=== PATIENT | female | born 1990 | race Caucasian/White ===

== ENCOUNTER 2017-09-16 15:24 | Inpatient (IN) ==
[2017-09-16] MEDS ORDERED: DINOPROSTONE VAG GEL 10 MG SYRINGE VAG ONE ×2 (15:55→16:10)
[2017-09-16 16:43] LABS: Basophils % 0.2 % (0.0-0.8); Eosinophils # 0.1 10*3/uL (0.0-0.87); Eosinophils % 0.6 % (0.00-10.9); Hematocrit 30.7 VOL% (35.7-47.0); Hemoglobin 10.5 GM/DL (12.0-16.0); Immature Granulocytes % 0.4 %; Immature Granulocytes Absolute 0.04 #; Lymphocytes # 1.7 10*3/uL (1.4-4.0); Lymphocytes % 18.4 % (21.3-54.2); Mean Corpuscular HGB Conc 34.2 GM/DL (32-36); Mean Corpuscular Hemoglobin 30 PG (27-34); Mean Corpuscular Volume 86.7 FL (87-102); Monocytes # 0.5 10*3/uL (0.11-0.8); Monocytes % 5.8 % (1.7-12.7); Neutrophils # 6.7 10*3/uL (1.4-7.4); Neutrophils % 74.6 % (38.7-73.9); Platelet Count 183 T/CUMM (130-400); Red Blood Count 3.54 MC/CUMM (3.8-5.5); Red Cell Distribution Width 13.4 % (9.3-17.3)
[2017-09-16] MEDS: LACTATED RINGERS 1,000 ML IV SCH (16:59)
[2017-09-17] MEDS: CLINDAMYCIN INJ 900 MG in PREMIX 1 EACH IV SCH ×2 (02:10→10:06)
[2017-09-17] MEDS ORDERED: OXYTOCIN/LR 20 UNIT/1,000 ML BAG IV SCH (03:00)
[2017-09-17] MEDS: MEPERIDINE 50 MG/1 ML VIAL IV PRN ×2 (03:24→08:32)
[2017-09-17] MEDS: ONDANSETRON 4 MG/2 ML VIAL IV PRN ×2 (03:24→08:33)
[2017-09-17] MEDS: LACTATED RINGERS 1,000 ML IV SCH (05:34)
[2017-09-17] MEDS ORDERED: hydrOXYzine HCL 25 MG/1 ML VIAL IM PRN (09:12)
[2017-09-17] MEDS ORDERED: ePHEDrine 50 MG/ML AMP IV PRN (09:12)
[2017-09-17] MEDS ORDERED: CITRIC ACID/SODIUM CITRATE 30 ML UDCUP PO ONE (09:12)
[2017-09-17] MEDS ORDERED: diphenhydrAMINE 50 MG/1 ML VIAL IV PRN ×2 (09:12)
[2017-09-17] MEDS ORDERED: PROMETHAZINE 25 MG/1 ML VIAL IM ONE (09:12)
[2017-09-17] MEDS ORDERED: FAMOTIDINE 20 MG/2 ML VIAL IV ONE (09:12)
[2017-09-17] MEDS ORDERED: fentaNYL 2 MCG/ROPIV 0.2% EPID 150 ML EPIDURAL SCH (09:30)
[2017-09-17 13:04] LABS: Amorphous Crystals,Urine Occasional /HPF (Few); Apearance,Urine Slightly Hazy (Clear); Bacteria,Urine Occasional /HPF (Few); Bilirubin,Urine Negative (Negative); Blood, Urine Negative (Negative); Glucose,Urine (UA) Negative (Negative); Hyaline Casts,Urine 2 /LPF (0-3); Ketones,Urine Negative (Negative); Mucus,Urine Occasional /LPF (Occasional); Nitrite,Urine Negative (Negative); Protein,Urine Negative; RBC,Urine 1 /HPF (0-4); Squamous Epithelial Cell,Urine Occasional /HPF (0-10); Urine Color Yellow (Yellow); Urine Specific Gravity 1.011 (1.001-1.035); Urine Urobilinogen < 2.0 EU/DL (0.2-1.0); WBC,Urine 2 /HPF (0-6)
[2017-09-17 16:31] LABS: Cord Venous Blood HCO3 21.4 MMOL/L; Cord Venous Blood PCO2 38.8 MMHG; Cord Venous Blood PO2 33.3
[2017-09-17] MEDS ORDERED: OXYTOCIN/LR 20 UNIT/1,000 ML BAG IV ONE (17:17)
[2017-09-17] MEDS: DOCUSATE SODIUM 100 MG CAPSULE PO SCH (21:02)
[2017-09-18 06:40] LABS: Basophils % 0.2 % (0.0-0.8); Eosinophils % 0.3 % (0.00-10.9); Hematocrit 26.1 VOL% (35.7-47.0); Immature Granulocytes % 0.4 %; Immature Granulocytes Absolute 0.04 #; Lymphocytes # 1.9 10*3/uL (1.4-4.0); Lymphocytes % 16.7 % (21.3-54.2); Mean Corpuscular HGB Conc 34.5 GM/DL (32-36); Mean Corpuscular Hemoglobin 29 PG (27-34); Mean Platelet Volume 10.3 FL (9.6-12.0); Monocytes # 0.7 10*3/uL (0.11-0.8); Monocytes % 5.8 % (1.7-12.7); Neutrophils # 8.7 10*3/uL (1.4-7.4); Neutrophils % 76.6 % (38.7-73.9); Platelet Count 145 T/CUMM (130-400); Red Blood Count 3.07 MC/CUMM (3.8-5.5); Red Cell Distribution Width 13.5 % (9.3-17.3); White Blood Count 11.3 T/CUMM (4-12)
[2017-09-18] MEDS: FERROUS SULFATE 325 MG TABLET PO SCH ×2 (09:38→19:26)
[2017-09-18] MEDS: MULTIVITAMIN (PRENATAL) TABLET PO SCH (09:38)
[2017-09-18] MEDS: DOCUSATE SODIUM 100 MG CAPSULE PO SCH ×2 (09:38→19:26)
[2017-09-18] MEDS: IBUPROFEN 800 MG TABLET PO PRN ×2 (11:29→19:26)
[2017-09-19] MEDS: DOCUSATE SODIUM 100 MG CAPSULE PO SCH ×2 (01:59→10:10)
[2017-09-19] MEDS: FERROUS SULFATE 325 MG TABLET PO SCH ×2 (02:00→10:10)
[2017-09-19 07:31] VITALS: BP 115/72
[2017-09-19] MEDS: MULTIVITAMIN (PRENATAL) TABLET PO SCH (10:10)
[2017-09-19] MEDS ORDERED: DIPH/TET/ACEL PERT BOOSTER VACCINE 0.5 ML VIAL IM ONE (11:02)
== END 2017-09-19 13:15 | disposition home or self-care (01) | DRG 560 ==
LOC: N.LDOUT 15:24 → N.LD 15:26 → N.OB 09-17 17:57
PROVIDERS: ADMIT Obstetrics & Gynecology; ATTEND Obstetrics & Gynecology

== ENCOUNTER 2020-04-12 06:12 | Inpatient (IN) ==
[2020-04-12] MEDS ORDERED: ONDANSETRON 4 MG/2 ML VIAL IV PRN (06:24)
[2020-04-12] MEDS ORDERED: LACTATED RINGERS 500 ML IV PRN (06:24)
[2020-04-12] MEDS ORDERED: BUTORPHANOL 2 MG/ML VIAL IV PRN (06:35)
[2020-04-12] MEDS ORDERED: MEPERIDINE 50 MG/1 ML VIAL IV PRN (06:35)
[2020-04-12] MEDS ORDERED: OXYTOCIN/LR 20 UNIT/1,000 ML BAG IV SCH (07:00)
[2020-04-12 07:09] LABS: Basophils % 0.1 % (0.0-0.8); Eosinophils % 0.5 % (0.00-10.9); Hematocrit 29.8 VOL% (35.7-47.0); Hemoglobin 9.9 GM/DL (12.0-16.0); Immature Granulocytes % 0.5 %; Immature Granulocytes Absolute 0.04 #; Lymphocytes # 1.5 10*3/uL (1.4-4.0); Lymphocytes % 17.7 % (21.3-54.2); Mean Corpuscular HGB Conc 33.2 GM/DL (32-36); Mean Corpuscular Volume 85.1 FL (87-102); Mean Platelet Volume 10.4 FL (9.6-12.0); Monocytes % 7.9 % (1.7-12.7); Neutrophils % 73.3 % (38.7-73.9); Platelet Count 158 T/CUMM (130-400); Red Cell Distribution Width 16.4 % (9.3-17.3); White Blood Count 8.7 T/CUMM (4-12)
[2020-04-12] MEDS: LACTATED RINGERS 1,000 ML IV SCH ×2 (07:20→10:36)
[2020-04-12] MEDS ORDERED: diphenhydrAMINE 50 MG/1 ML VIAL IV PRN (07:34)
[2020-04-12] MEDS ORDERED: CITRIC ACID/SODIUM CITRATE 30 ML UDCUP PO ONE (07:34)
[2020-04-12] MEDS ORDERED: hydrOXYzine HCL 25 MG/1 ML VIAL IM PRN (07:34)
[2020-04-12] MEDS ORDERED: NALOXONE 0.4 MG/ML VIAL IV PRN (07:34)
[2020-04-12] MEDS ORDERED: FAMOTIDINE 20 MG/2 ML VIAL IV ONE (07:34)
[2020-04-12] MEDS ORDERED: PROMETHAZINE 25 MG/1 ML VIAL IM PRN (07:34)
[2020-04-12] MEDS ORDERED: ePHEDrine 50 MG/ML VIAL IV PRN (07:34)
[2020-04-12 07:36] LABS: Alanine Aminotransferase 16 U/L (13-56); Albumin 2.6 G/DL (3.4-5.0); Alkaline Phosphatase 153 U/L (45-117); Aspartate Amino Transferase 14 U/L (0-37); Bilirubin,Total < 0.39 MG/DL (0.2-1.0); Blood Urea Nitrogen 7 MG/DL (7-18); Calcium 9.2 MG/DL (8.5-10.1); Estimated Glom Filtration Rate 146 ML/MIN; Glucose 89 MG/DL (74-106); Total Protein 7.4 G/DL (6.4-8.3)
[2020-04-12] MEDS ORDERED: fentaNYL 2 MCG/ROPIV 0.2% EPID 100 ML EPIDURAL SCH (08:00)
[2020-04-12 12:20] LABS: Bacteria,Urine Occasional /HPF (Few); Bilirubin,Urine Negative (Negative); Blood, Urine Negative (Negative); Calcium Oxalate Crystals,Urine Occasional /HPF (Few); Glucose,Urine (UA) Negative (Negative); Hyaline Casts,Urine 1 /LPF (0-3); Ketones,Urine 5 mg/dL (Negative); Mucus,Urine Few /LPF (Occasional); Nitrite,Urine Negative (Negative); Protein,Urine 30 MG/DL; RBC,Urine 2 /HPF (0-4); Squamous Epithelial Cell,Urine Occasional /HPF (0-10); Urine Appearance CLEAR (Clear); Urine Color Yellow (Yellow); Urine Urobilinogen < 2.0 EU/DL (0.2-1.0); WBC,Urine 2 /HPF (0-6)
[2020-04-12] MEDS ORDERED: METHYLERGONOVINE 0.2 MG/1 ML AMP ONE (16:08)
[2020-04-12] MEDS ORDERED: CARBOPROST TROMETHAMINE 250 MCG/ML AMP IM ONE (16:08)
[2020-04-12] MEDS ORDERED: miSOPROStoL 200 MCG TABLET ONE (16:08)
[2020-04-12 17:27] LABS: Cord Venous Blood HCO3 22.1 MMOL/L; Cord Venous Blood PCO2 44.7 MMHG; Cord Venous Blood PO2 26.3 MMHG
[2020-04-12] MEDS ORDERED: ACETAMINOPHEN 325 MG TABLET PO PRN (21:11)
[2020-04-12] MEDS ORDERED: MEASLES/MUMPS/RUBELLA VACCINE 0.5 ML VIAL SUBCUT ONE (21:11)
[2020-04-12] MEDS ORDERED: BENZOCAINE 20%/MENTHOL 0.5% SPRAY 56 GM CAN TOP PRN (21:11)
[2020-04-12] MEDS ORDERED: RHO(D) IMMUNE GLOBULIN 300 MCG SYRINGE IM ONE (21:11)
[2020-04-12] MEDS ORDERED: oxyCODONE/ACETAMINOPHEN 5-325 MG TABLET PO PRN ×2 (21:11)
[2020-04-12] MEDS ORDERED: DIPH/TET/ACEL PERT BOOSTER VACCINE 0.5 ML VIAL IM ONE (21:11)
[2020-04-12] MEDS ORDERED: WITCH HAZEL PADS 100/JAR TOP PRN (21:11)
[2020-04-12] MEDS ORDERED: HYDROCORTISONE 2.5% RECTAL CREAM 30 GM TUBE TOP PRN (21:11)
[2020-04-12] MEDS ORDERED: OXYTOCIN/LR 20 UNIT/1,000 ML BAG IV ONE (21:11)
[2020-04-12] MEDS ORDERED: BISACODYL 10 MG SUPP RECTAL PRN (21:11)
[2020-04-12] MEDS ORDERED: LANOLIN 50% CREAM 0.3 OZ TUBE TOP PRN (21:11)
[2020-04-12] MEDS: IBUPROFEN 800 MG TABLET PO PRN (21:34)
[2020-04-13] MEDS ORDERED: CALCIUM CARBONATE CHEW 500 MG TABLET PO PRN (04:09)
[2020-04-13] MEDS: IBUPROFEN 800 MG TABLET PO PRN ×3 (04:12→20:40)
[2020-04-13 06:38] LABS: Basophils % 0.3 % (0.0-0.8); Eosinophils # 0.1 10*3/uL (0.0-0.87); Eosinophils % 0.6 % (0.00-10.9); Hematocrit 31.1 VOL% (35.7-47.0); Hemoglobin 10.3 GM/DL (12.0-16.0); Immature Granulocytes % 0.6 %; Immature Granulocytes Absolute 0.06 #; Lymphocytes # 1.9 10*3/uL (1.4-4.0); Lymphocytes % 17.6 % (21.3-54.2); Mean Corpuscular HGB Conc 33.1 GM/DL (32-36); Mean Corpuscular Volume 84.7 FL (87-102); Mean Platelet Volume 11.1 FL (9.6-12.0); Monocytes % 5.9 % (1.7-12.7); Platelet Count 142 T/CUMM (130-400); Red Blood Count 3.67 MC/CUMM (3.8-5.5); Red Cell Distribution Width 16.3 % (9.3-17.3); White Blood Count 10.7 T/CUMM (4-12)
[2020-04-13] MEDS: LEVOTHYROXINE 100 MCG TABLET PO SCH (09:27)
[2020-04-13] MEDS: DOCUSATE SODIUM 100 MG CAPSULE PO SCH ×2 (09:27→20:40)
[2020-04-13] MEDS: ALUMINUM/MAGNES/SIMETH MAX STR 30 ML UDCUP PO PRN (18:32)
[2020-04-14] MEDS: ALUMINUM/MAGNES/SIMETH MAX STR 30 ML UDCUP PO PRN (05:32)
[2020-04-14] MEDS: LEVOTHYROXINE 100 MCG TABLET PO SCH (06:46)
[2020-04-14] MEDS ORDERED: PANTOPRAZOLE 20 MG TABLET PO SCH (09:00)
[2020-04-14] MEDS: DOCUSATE SODIUM 100 MG CAPSULE PO SCH (09:06)
[2020-04-14 09:29] VITALS: BP 111/68
[2020-04-15] MEDS ORDERED: NON-FORMULARY MEDICATION (Omeprazole Magnesium [Prilosec Otc] 20 MG tablet,delayed release PO SCH (09:00)
[2020-04-15] MEDS ORDERED: MULTIVITAMIN (PRENATAL) TABLET PO SCH (09:00)
[2020-04-15] MEDS ORDERED: LEVOTHYROXINE 100 MCG PO SCH (09:00)
== END 2020-04-14 14:30 | disposition home or self-care (01) | DRG 560 ==
LOC: N.LDOUT 06:12 → N.LD 06:14 → N.OB 21:10
PROVIDERS: ADMIT Obstetrics & Gynecology; ATTEND Obstetrics & Gynecology